=== PATIENT | male | born 2000 | race Caucasian/White ===

== ENCOUNTER 2022-08-25 12:29 | Emergency (ER) | payer SELFPAY ==
[~2022-08-25] VITALS: Ht 185.4 cm; Wt 61.4 kg
[2022-08-25] MEDS ORDERED: normal saline 1000ML IV soln IVB ONE (12:50)
[2022-08-25] MEDS ORDERED: LORazepam 2 mg/ml vial IV ONE (12:50)
[2022-08-25 13:04] LABS: BASOPHILS # (AUTO) 0.1 X10'3 (0-0.2); BASOPHILS % (AUTO) 1.1 % (0-1); EOSINOPHILS # (AUTO) 0.3 X10'3 (0-0.9); EOSINOPHILS % (AUTO) 3.6 % (0-6); HEMATOCRIT 47.8 % (42.0-52.0); HEMOGLOBIN 16.7 g/dl (14.0-17.9); LYMPHOCYTES % (AUTO) 35.4 % (21-51); MEAN CORPUSCULAR HEMOGLOBIN 35.4 PG (27.0-31.0); MEAN PLATELET VOLUME 7.6 FL (7.4-10.4); MONOCYTES # (AUTO) 0.5 X10'3 (0-0.9); MONOCYTES % (AUTO) 5.8 % (2-12); NEUTROPHILS # (AUTO) 4.6 X10'3 (1.8-7.7); NEUTROPHILS % (AUTO) 54.1 % (42-75); PLATELET COUNT 323 X10'3 (140-440); RED BLOOD COUNT 4.73 X10'6 (4.70-6.10); RED CELL DISTRIBUTION WIDTH 12.9 % (11.5-14.5); WHITE BLOOD COUNT 8.6 X10'3 (4.5-11.0)
[2022-08-25] MEDS ORDERED: iohexol 300mg/ml 100ml inj. ONE (13:22)
--- NOTE | 2022-08-25 13:27 | NUR ---
AMBULATED TO CT WITH LAW ENFORCEMENT
[2022-08-25 13:28] LABS: ALANINE AMINOTRANSFERASE 263 U/L (12-78); ALBUMIN 4.4 G/DL (3.4-5.0); ALBUMIN/GLOBULIN RATIO 1.2 (1.1-1.5); ALKALINE PHOSPHATASE 147 IU/L (46-116); ANION GAP 13 (8-16); ASPARTATE AMINO TRANSFERASE 320 U/L (10-37); BILIRUBIN,TOTAL 0.4 MG/DL (0.1-1.0); BLOOD UREA NITROGEN 5 MG/DL (7-18); BUN/CREATININE RATIO 4.9 (10.0-20.0); CALCIUM 8.9 MG/DL (8.5-10.1); CHLORIDE 105 MMOL/L (99-107); CREATININE 1.03 MG/DL (0.60-1.10); GLUCOSE 113 MG/DL (70-104); POTASSIUM 3.5 MMOL/L (3.5-5.1); SODIUM 143 MMOL/L (135-145); TOTAL CARBON DIOXIDE 24.8 MMOL/L (24-32); TOTAL PROTEIN 8.1 G/DL (6.4-8.2); eGFR 90 ML/MIN
[2022-08-25 13:34] LABS: ETHANOL 0.332 GM/DL (0.0-0.010)
[2022-08-25] MEDS ORDERED: AMOX-117 PO (14:31)
[2022-08-25 14:55] VITALS: BP 145/87
== END 2022-08-25 14:59 ==
LOC: ER 12:30
DX: S11.91XA Laceration without foreign body of unspecified part of neck, initial encounter (principal); S20.311A Abrasion of right front wall of thorax, initial encounter; T65.894A Toxic effect of other specified substances, undetermined, initial encounter; F10.129 Alcohol abuse with intoxication, unspecified; Z79.899 Other long term (current) drug therapy; W54.0XXA Bitten by dog, initial encounter; Y93.89 Activity, other specified; Y92.89 Other specified places as the place of occurrence of the external cause; Y99.8 Other external cause status; Y90.9 Presence of alcohol in blood, level not specified
CPT/HCPCS: 36415; 70491; 71045; 80053; 80320; 85025; 85610; 96361; 96374; 99285; J2060; J3490; J7030; Q9967; A6213

== ENCOUNTER 2023-09-14 17:20 | Emergency (ER) | payer MEDICAID ==
[~2023-09-14] VITALS: Ht 185.4 cm; Wt 64.0 kg
[2023-09-14 17:24] VITALS: BP 145/74; PULSE 108; RESP 16; TEMP 97.9; O2SAT 95
== END 2023-09-14 19:17 | disposition left against medical advice (07) ==
LOC: ER 17:21
DX: S69.81XA Other specified injuries of right wrist, hand and finger(s), initial encounter (principal); X58.XXXA Exposure to other specified factors, initial encounter; Y93.89 Activity, other specified; Y92.89 Other specified places as the place of occurrence of the external cause; Y99.8 Other external cause status; Z53.21 Procedure and treatment not carried out due to patient leaving prior to being seen by health care provider
CPT/HCPCS: 73130; A6258

== ENCOUNTER 2024-01-31 08:20 | Emergency (ER) | payer SELFPAY ==
[~2024-01-31] VITALS: Ht 185.4 cm; Wt 65.2 kg
[2024-01-31 08:23] VITALS: TEMP 97.1
[2024-01-31 08:58] LABS: BASOPHILS % (AUTO) 0.4 % (0-1); EOSINOPHILS # (AUTO) 0.2 X10'3 (0-0.9); EOSINOPHILS % (AUTO) 2.5 % (0-6); HEMATOCRIT 47.2 % (42.0-52.0); HEMOGLOBIN 16.5 g/dl (14.0-17.9); LYMPHOCYTES # (AUTO) 1.5 X10'3 (1.1-4.8); LYMPHOCYTES % (AUTO) 16.2 % (21-51); MEAN CORPUSCULAR HEMOGLOBIN 34.8 PG (27.0-31.0); MEAN CORPUSCULAR HGB CONC 34.9 g/dL (33.0-36.5); MEAN CORPUSCULAR VOLUME 99.6 FL (78-98); MEAN PLATELET VOLUME 6.7 FL (7.4-10.4); MONOCYTES # (AUTO) 0.6 X10'3 (0-0.9); MONOCYTES % (AUTO) 6.8 % (2-12); NEUTROPHILS # (AUTO) 6.8 X10'3 (1.8-7.7); NEUTROPHILS % (AUTO) 74.1 % (42-75); PLATELET COUNT 245 X10'3 (140-440); RED BLOOD COUNT 4.74 X10'6 (4.70-6.10); RED CELL DISTRIBUTION WIDTH 12.7 % (11.5-14.5); WHITE BLOOD COUNT 9.2 X10'3 (4.5-11.0)
[2024-01-31 09:06] LABS: ALANINE AMINOTRANSFERASE 29 U/L (12-78); ALBUMIN 4.1 G/DL (3.4-5.0); ALKALINE PHOSPHATASE 106 IU/L (46-116); ANION GAP 10 (8-16); ASPARTATE AMINO TRANSFERASE 30 U/L (10-37); BILIRUBIN,TOTAL 0.6 MG/DL (0.1-1.0); BLOOD UREA NITROGEN 10 MG/DL (7-18); CALCIUM 8.9 MG/DL (8.5-10.1); CHLORIDE 99 MMOL/L (99-107); CREATININE 0.91 MG/DL (0.60-1.10); GLUCOSE 99 MG/DL (70-104); POTASSIUM 3.6 MMOL/L (3.5-5.1); SODIUM 135 MMOL/L (135-145); TOTAL CARBON DIOXIDE 26.4 MMOL/L (24-32); TOTAL PROTEIN 8.2 G/DL (6.4-8.2); eCRCL 116 ML/MIN; eGFR > 90 ML/MIN
[2024-01-31 09:13] LABS: PRO BRAIN NATRIURETIC PEPTIDE 38 PG/ML (0-125)
[2024-01-31 10:29] VITALS: BP 147/87; PULSE 71; RESP 16; O2SAT 98
[2024-01-31] MEDS ORDERED: ketorolac trometh 15mg/ml vial 15 MG/ML ML IM ONE (10:30)
== END 2024-01-31 10:31 | disposition left against medical advice (07) ==
LOC: ER 08:21
DX: M94.0 Chondrocostal junction syndrome [Tietze] (principal); R06.02 Shortness of breath; R11.0 Nausea; I49.8 Other specified cardiac arrhythmias
CPT/HCPCS: 36415; 71045; 80053; 83880; 84484; 85025; 93005; 99285